=== PATIENT | female | born 1975 | race Caucasian/White ===

== ENCOUNTER 2016-12-07 05:00 | Emergency (ER) | payer OTHER ==
[2016-12-07 05:09] VITALS: BP 128/85
--- NOTE | 2016-12-07 05:49 | ED ---
Annabelle Leahy Janilya, scribed for Kyrie Suárez MD on 12/07/16 at 0535 . Respiratory - HPI Summary HPI Summary: A 41 y/o female came in to [facility] presenting w/ a gradual onset of constant cough for about 2 weeks starting November 24, 2016. Pt states that the cough has progressively worsened. She reports chest congestion which makes it difficult for her to lie down on her side. When she awakes, pt states she cannot pick her head up and her neck feels swollen and sore. Pt denies fever. Pt has been taking Ibuprofen with little relief. SHx occasional smoker, 3 cigarettes a week. - History of Current Complaint Chief Complaint: EDUpperRespComplaint Stated Complaint: COUGH, CHEST TIGHTNESS Hx Obtained From: Patient Onset/Duration: Gradual Onset, Lasting Weeks, Still Present Timing: Constant Initial Severity: Moderate Current Severity: Moderate Pain Intensity: 6 Character: Cough (Productive) Sputum Amount: Moderate Sputum Color: Yellow Aggravating Factor(s): Nothing Alleviating Factor(s): Nothing Associated Signs and Symptoms: Chest Pain, Chest Pain with Cough - Allergy/Home Medications Allergies/Adverse Reactions: Allergies Allergy/AdvReac Type Severity Reaction Status Date / Time No Known Allergies Allergy Verified 03/29/15 06:42 PMH/Surg Hx/FS Hx/Imm Hx Previously Healthy: Yes Cardiovascular History: Denies: Other Cardiovascular Problems/Disorders Respiratory History: Denies: Other Respiratory Problems/Disorders GI History: Reports: Hx Irritable Bowel, Other GI Disorders - GLUTEN INTOLERENCE Musculoskeletal History: Denies: Other Musculoskeletal History Sensory History: Denies: Hx Contacts or Glasses, Hx Hearing Aid Opthamlomology History: Denies: Hx Contacts or Glasses - Surgical History Hx Anesthesia Reactions: No Infectious Disease History: No Infectious Disease History: Denies: Traveled Outside the [place] in Last 30 Days - Family History Known Family History: Negative: Cardiac Disease, Hypertension, Diabetes - Social History Alcohol Use: Rare Alcohol Amount: 1 GLASS WINE PER WEEK Substance Use Type: Reports: None Smoking Status (MU): Light Every Day Tobacco Smoker Type: Cigarettes Amount Used/How Often: 2 CIGS PER DAY Have You Smoked in the Last Year: No Review of Systems Negative: Fever Cardiovascular: Other - chest congestion Positive: Cough Positive: Arthralgia - neck swollen, Myalgia - neck swollen All Other Systems Reviewed And Are Negative: Yes Physical Exam Triage Information Reviewed: Yes Vital Signs On Initial Exam: Initial Vitals Temp Pulse Resp BP Pulse Ox 98.5 F 80 14 128/85 100 12/07/16 05:06 12/07/16 05:06 12/07/16 05:06 12/07/16 05:06 12/07/16 05:06 Vital Signs Reviewed: Yes Appearance: Positive: Well-Appearing, No Pain Distress, Thin Skin: Positive: Warm Eyes: Positive: JODY ENT: Positive: Hearing grossly normal Neck: Positive: Supple Respiratory/Lung Sounds: Positive: Clear to Auscultation, Breath Sounds Present Cardiovascular: Positive: RRR Abdomen Description: Positive: Nontender, Soft Musculoskeletal: Positive: Strength/ROM Intact Neurological: Positive: Alert, Oriented to Person Place, Time, Normal Gait Diagnostics - Vital Signs Vital Signs Temp Pulse Resp BP Pulse Ox 12/07/16 05:06 98.5 F 80 14 128/85 100 - Laboratory Lab Statement: Any lab studies that have been ordered have been reviewed, and results considered in the medical decision making process. - Radiology cxr Xray Interpretation: No Acute Changes Radiology Interpretation Completed By: ED Physician Re-Evaluation - Re-Evaluation First Eval Re-Evaluation Time: 06:06 - results d/w pt Change: Improved Disposition - Diagnoses Provider Diagnoses: Cough Discharge - Discharge Plan Condition: Improved Disposition: HOME Patient Education Materials: Chronic Cough (ED) The documentation as recorded by the Annabelle slater Janilya accurately reflects the service I personally performed and the decisions made by me, Kyrie Suárez MD.
--- NOTE | 2016-12-07 07:47 | RAD ---
HISTORY: Cough COMPARISONS: None VIEWS: 2: Frontal dual-energy and lateral views of the chest. FINDINGS: CARDIOMEDIASTINAL SILHOUETTE: The cardiomediastinal silhouette is normal. GOLDEN: The golden are normal. PLEURA: The costophrenic angles are sharp. No pleural abnormalities are noted. LUNG PARENCHYMA: The lungs are clear. ABDOMEN: The upper abdomen is clear. There is no subphrenic gas. BONES AND SOFT TISSUES: No bone or soft tissue abnormalities are noted. OTHER: None. IMPRESSION: NO ACTIVE CARDIOPULMONARY DISEASE.
== END 2016-12-07 06:23 | disposition home or self-care (01) ==
LOC: ED 05:00
DX: R05 Cough (principal); F17.210 Nicotine dependence, cigarettes, uncomplicated
CPT/HCPCS: 71020; 99282